=== PATIENT | female | born 2005 | race Caucasian/White ===

== ENCOUNTER 2024-07-22 12:26 | Emergency (ER) | payer OTHER, SELFPAY ==
[2024-07-22 12:47] VITALS: BMI 20.5
[2024-07-22 13:07] LABS: % Basophils 0.9 % (0-2); % Immature Granulocytes 0.3 % (0-0.5); % Lymphocytes 26.9 % (20.5-51.1); % Monocytes 7.8 % (1.7-9.3); % Neutrophils 61.1 % (42.2-75.2); Absolute Basophils 0.1 10^3/uL (0-0.2); Absolute Eosinophils 0.2 10^3/uL (0-0.7); Absolute Lymphocytes 1.8 10^3/uL (1.2-3.4); Absolute Monocytes 0.5 10^3/uL (0.1-0.6); Absolute Neutrophils 4.1 10^3/uL (1.4-6.5); Hematocrit 41.3 % (37.0-47.0); Hemoglobin 14.5 g/dL (12.0-16.0); Mean Corp Hgb Conc. 35.1 g/dL (33.0-37.0); Mean Corpuscular Hgb 30.8 pg (27.0-31.0); Mean Corpuscular Volume 87.7 fL (81.0-99.0); Mean Platelet Volume 9.1 fL (7.4-10.4); Nucleated Red Blood Cells % 0 %; Platelet Count 222 10^3/uL (130-400); Red Blood Cell Count 4.71 10^6/uL (4.20-5.40); Red Cell Dist. Width 11.7 % (11.5-14.5); White Blood Cell Count 6.8 10^3/uL (4.8-10.8)
[2024-07-22 13:34] LABS: ALT (SGPT) 36 U/L (0-35); AST (SGOT) 32 U/L (14-36); Albumin 4.9 g/dl (3.5-5.0); Alkaline Phosphatase 44 U/L (38-126); Blood Urea Nitrogen 16 mg/dl (7-17); Calcium 9.5 mg/dl (8.4-10.2); Carbon Dioxide 26 mmol/L (22-30); Chloride 100 mmol/L (98-107); Estimated Creatinine Clearance 108 ml/min; Glucose 97 mg/dl (70-99); Potassium 4.6 mmol/L (3.5-5.1); Sodium 138 mmol/L (135-145); Total Bilirubin 1.3 mg/dl (0.2-1.3); Total Protein 7.3 g/dl (6.3-8.2); eGFR > 60.00
[2024-07-22 14:32] VITALS: BP 130/70
--- NOTE | 2024-07-22 16:27 | ED.GENMED ---
History of Present Illness
General
Chief Complaint: Abdominal Pain
Source: patient
Exam Limitations: none
Time Seen by Provider: 07/22/24 16:14
Nursing documentation reviewed up to this point in time: agreed with
History of Present Illness
History of Present Illness:
PT IS A 19 Y/O F
iud
lmp 3 weeks ago
here with severe abrupt onset R pelvic pain at 11 am today after urinating
laid on the floor due to the pain
ended up vomiting once
since has had shaunna and it is worse with walking/moving
she feels lightheaded and shaky
she has no dysuria, hematuria, diarrhea, vaginal bleeding, vaginal dicharge
Past History
Past History
ED Past Medical History: None
ED Past Surgical History: None
Social History
Tobacco: Non-smoker
Alcohol: None
Personal: Single
Review of Systems
Review of Systems
Allergies reviewed?: Yes
All Other Systems: Not applicable
Phy Exam
Physical Exam
Physical Exam:
GENERAL: Alert , in no apparent distress, looks very well
EYE: pupils equal and reactive
NECK: Supple
ENT: o/p clr, mmm.
CARDIAC: Regular rate and rhythm .
LUNGS: Clear breath sounds bilaterally, no acute respiratory distress, no wheezes/rales/rhonchi
ABDOMEN: Soft, tender R pelvic region, no r/g, no cvat, normal bowel sounds
no guraduing, no rebound
NEUROLOGICAL: Alert and oriented, no focal neuro deficits
PSYCH: Normal and appropriate interaction.
Course
Orders/Labs/Results
Orders:
Orders
07/22/24 12:53
Complete Blood Count/With Diff Urgent
Comprehensive Metabolic Panel Urgent
HCG, Serum Qualitative Screen Urgent
Comment: ADD ON
Lipase Urgent
Comment: ADD ON
07/22/24 16:14
Add On- LAB Urgent
Tests Added?: hcg qualitative
07/22/24 16:15
Add On- LAB Urgent
Tests Added?: Lipase
07/22/24 16:26
Iohexol [Omnipaque] See Protocol PO NOW STA
Ketorolac [Toradol] 15 mg IV NOW STA
US Pelvis W Transvag Combined Urgent
Comment:
Reason For Exam: SEVERE R PELVIC PAIN, EVAL TORSION VS CYST
07/22/24 16:48
Urinalysis Reflex To Culture Urgent
Date Specimen was Collected: 07/22/24
Time Specimen was Collected: 16:17
Chlamydia/GC by PCR Urgent
CRISTOPHER Source: U
Specimen Description:
Date Specimen was Collected: 07/22/24
Time Specimen was Collected: 16:17
07/22/24 18:34
CT Abd/pel W Iv And Oral Contr Urgent
Comment:
Reason For Exam: rlq pain, already drinking for ct;
07/22/24 19:56
Add On- LAB Urgent
Tests Added?: urine gonorrhea/chlamydia
Abnormal Lab Results
07/22/24 07/22/24
12:53 16:48
ALT 36 H U/L
(0-35)
Urine Ketones 3+ A
(Negative)
07/22/24 12:53
07/22/24 12:53
Vital Signs
Initial and Last Documented VS:
Initial Vital Signs
Temp Pulse Resp Pulse Ox
36.7 C 76 16 100
07/22/24 12:47 07/22/24 12:47 07/22/24 12:47 07/22/24 12:47
Last Documented Vital Signs
Temp Pulse Resp BP Pulse Ox
36.4 C 72 20 111/63 99
07/22/24 16:56 07/22/24 20:38 07/22/24 16:56 07/22/24 20:33 07/22/24 20:38
MDM/Problems Addressed
Differential Diagnosis Includes:
ovarian cyst, ovarian torsion, gas pain, uti, PID, appendicitis
MDM/Problems Addressed:
19 y/o F
abrupt onset of severe R pelvic pain this mornig after urinating that caused n/v x 1
since has had pain worse with walking
feels better lying down
no vag bleeding, urinarys yptmms, consptiaiton
never had ovarian cyst
has IUD
on exam pt has tenderness R pelvic region
looks comfortable no distress
prepped for CT with oral contrast while waiting for US which showed L sided ovarian cyst 3 cm but nothin meir the right ovary
normal flow
iud in place
so pt was sent for CT to r/O apppe
CT shows some fluid in the pelvis
and L ovarian cyst
given copeiesof reports
i suspect she ruptured art of the cyst this morning desite that it is located on the L side, not the R wher eher pain was
her pain is likely referred fromthe fluid
pt has no concerns for PID
d/w ed attenidng
d/c home
outpatient gyne f/u
nsaids
*Critical Care Note
Total Time (30-74mins, 75-104mins- exclusive of procedures): Not Applicable
ED Attending Note
-
Portions of this chart may have been created with voice recognition software.� Occasional wrong word or��sound alike� substitutions may have occurred due to the inherent limitations of voice recognition software.
Discharge Plan
Departure
Patient Disposition: Home (Routine Discharge)
Date of Disposition: 07/22/24
Time of Disposition: 19:56
Patient with high blood pressure during this ER visit?: No
Condition: Fair
Covid-19: Not Applicable
Discharge Problem:
Ovarian cyst
Instructions: Ovarian Cyst (DC)
Prescriptions:
No Action
No Current Medications
0
Referrals:
Pancho Jennings III, DO [Family Provider] -
Stand Alone Forms: Return to Work
Activity Restrictions/Additional Instructions:
PLEASE CALL YOUR OB/GYNE FOR FOLLOW UP TO ENSURE RESOLUTION OF YOUR OVARIAN CYST WHICH IS LIKELY THE CAUSE OF YOUR PAIN
TAKE MOTRIN 600 MG EVERY 8 HOURS WITH FOOD FOR PAIN
TYLENOL 650 MG EVERY 6 HOURS NEEDED FOR SHAUNNA WELL
HEATING PAD OFF AND ON
RETURN FOR: FEVER, CHILLS, WORSE PAIN, VOMITING REPEATEDLY, VAIGNAL DISCHARGE OR ANY CONCERNS.
Interventions
Interventions:
*Risk Screen - Suicide Last Done: 07/22/24 12:47
*General Assessment Last Done: 07/22/24 12:47
*Neglect/Abuse Screening Last Done: 07/22/24 16:56
ED- Fall Risk Assessment Last Done: 07/22/24 16:56
*ED COVID-19 Vaccine History Last Done: 07/22/24 12:47
*Nursing Disposition Last Done: 07/22/24 20:38
BZ-Ymvklv-Safvcvablc Assessment Last Done: 07/22/24 16:56
Discharge Date and Time
Discharge Date/Time: 07/22/24 20:40
Print Language: VIETNAMESE
[2024-07-22] MEDS: OMNIPAQUE 50 ML PO (16:50)
[2024-07-22] MEDS: TORADOL 15 MG IV (16:50)
[2024-07-22 16:54] LABS: HCG, Serum Qualitative Screen Negative
[2024-07-22 16:56] VITALS: BP 117/74
[2024-07-22 17:00] LABS: Lipase 112 U/L (23-300)
[2024-07-22 19:00] VITALS: BP 103/50
[2024-07-22 19:12] LABS: Urine Albumin Negative (Neg - Trace); Urine Bilirubin Negative (Negative); Urine Character Clear (Clear); Urine Color Yellow; Urine Glucose Negative (Negative); Urine Ketone 3+ (Negative); Urine Leukocyte Negative (Negative); Urine Nitrite Negative (Negative); Urine Occult Blood Negative (Negative); Urine Specific Gravity 1.025 (<1.030); Urine Urobilinogen Negative (Neg - 1+)
[2024-07-22 20:33] VITALS: BP 111/63
== END 2024-07-22 20:40 | disposition home or self-care (01) ==
LOC: EMR 12:26
PROVIDERS: Emergency Medicine; Physician Assistant; EMERGENCY PHYSICIAN Emergency Medicine; FAMILY PHYSICIAN Student in an Organized Health Care Education/Training Program
DX: N83.202 Unspecified ovarian cyst, left side (principal)
CPT/HCPCS: 99284; 96374; 74177; 76830; 76856; 80053; 81003; 83690; 84703; 85025; 87491; 87591; Q9967